=== PATIENT | male | born 1995 | race African-American/Black ===

== ENCOUNTER 2023-10-20 09:59 | Emergency (ER) | payer SELFPAY ==
[2023-10-20] MEDS ORDERED: cefTRIAXone (ROCEPHIN) 500 MG VIAL ONE (10:38)
[2023-10-20] MEDS ORDERED: Lidocaine 1% MPF 2 ML VIAL ONE (10:38)
[2023-10-20 23:31] LABS: Chlam.trachomatis by PCR,Urine Not Detected (NotDetected); GC N.gonorrhoeae PCR,UrineVOID Not Detected (NotDetected)
== END 2023-10-20 11:07 | disposition home or self-care (01) ==
LOC: ERS 09:59
DX: N34.1 Nonspecific urethritis (principal); F17.210 Nicotine dependence, cigarettes, uncomplicated
CPT/HCPCS: 87491; 87591; 96372; 99283; J0696